=== PATIENT | female | born 2000 | race Caucasian/White ===

== ENCOUNTER 2019-07-11 17:36 | Emergency (ER) | payer SELFPAY ==
--- NOTE | 2019-07-11 18:06 | RAD ---
EXAM: 3 views of the right ankle HISTORY: Ankle pain COMPARISON: None FINDINGS: 3 views of the right ankle shows no evidence of acute fracture or dislocation. No soft tiss ue swelling is seen. No degenerative changes are present. IMPRESSION: No evidence of acute osseous abnormality.
[2019-07-11] MEDS ORDERED: Ibuprofen 600 MG TAB ONE (18:12)
== END 2019-07-11 18:24 | disposition home or self-care (01) ==
LOC: MADERS 17:36
DX: S93.401A Sprain of unspecified ligament of right ankle, initial encounter (principal); F17.210 Nicotine dependence, cigarettes, uncomplicated; W23.0XXA Caught, crushed, jammed, or pinched between moving objects, initial encounter